=== PATIENT | male | born 1950 | race Caucasian/White ===

== ENCOUNTER → 2023-04-23 | Outpatient (CLI) | payer MEDICARE ==
--- NOTE | 2023-04-23 11:05 | MR ---
EXAMINATION TYPE: MR Prostate wo/w con DATE OF EXAM: 04/23/2023 10:25 AM COMPARISON: None. CLINICAL INDICATION:Male, 73 years old with history of R97.20 ELEVATED PSA; [facility], TECHNIQUE: Multi-planar, multi-sequence imaging of the pelvis is performed prior to and following the uncomplicated administration of bolus intravenous gadolinium. CONTRAST: 10 cc Gadavist Interpretive Criteria: PI-RADS v2.1 SERUM PSA: 4.1 on 09/21/2022 SURGICAL PATHOLOGY: No data available. FINDINGS: Prostatic dimensions: 4.9 x 5.3 x 3.7 cm. Ellipsoid Volume: 50.31 (PSA density=0.08 ng/mL/mL) CENTRAL GLAND (Central and Transition Zones/CZ+TZ): Multiple bilateral, heterogenous appearing hypertrophic stromal nodules, without suspicious lesion. M edian lobe hypertrophy with protrusion into the base of the bladder. (PI-RADS 2) PERIPHERAL ZONE (PZ): High DWI, low T2, low ADC signal within the right mid gland and apex. This measures 18 x 9 mm. There is capsular bulging in this region. There is postcontrast enhancement of this region. (PI-RADS 5) SEMINAL VESICLES (SV): Symmetric and unremarkable. PERIPROSTATIC TISSUES: Unremarkable. LYMPH NODES: No enlarged pelvic lymph node. REMAINING PELVIS: Bladder wall is within normal limits given distention. No abnormal free or organized intrapelvic fluid collection. No pathologic bowel dilation or mural thickening. Scattered colonic diverticula are present. OSSEOUS STRUCTURES: No suspicious osseous abnormality. IMPRESSION: 1. PI-RADS 5 lesion right mid gland/apex of the peripheral zone. Measuring 18 x 9 9 mm. 2. Moderate BPH, estimated gland volume 50.31 mL. 3. No suspicious osseous lesion. No lymphadenopathy. No evidence of prostate adenocarcinoma involving the periprostatic tissues.
== END | disposition home or self-care (01) ==
LOC: RADMRIMAIN 09:22
PROVIDERS: ATTEND Urology
DX: N40.0 Benign prostatic hyperplasia without lower urinary tract symptoms (principal); R97.20 Elevated prostate specific antigen [PSA]
CPT/HCPCS: 72197; A9585